=== PATIENT | male | born 1965 | race Caucasian/White ===

== ENCOUNTER 2019-07-29 13:22 | Emergency (ER) | payer OTHER ==
--- NOTE | 2019-07-29 13:49 | EKG REPORT ---
SEVERITY:- ABNORMAL ECG - ISNUS TACHYCARDIA LVH WITH SECONDARY REPOLARIZATION ABNORMALITY BORDERLINE PROLONGED QT INTERVAL PVC NONSPECIFIC ST-T CHANGES- INFERIOR LEADS : Confirmed by: Ivan Hinson MD 29-Jul-2019 13:48:32
[2019-07-29] MEDS ORDERED: ASPIRIN 81 MG TABLET, CHEWABLE PO ONE (13:50)
--- NOTE | 2019-07-29 13:53 | ER Document Report ---
ED Medical Screen (RME) - General Chief Complaint: Chest Pain Stated Complaint: CHEST PAIN Time Seen by Provider: 07/29/19 13:46 Mode of Arrival: Wheelchair Information source: Patient Notes: This 53-year-old male presents emergency department with complaints of his chest feeling tight fluttering. Patient feels very shaky nauseated said he started sweating. Reports he is on jury duty left eat lunch at [employer] when he started feeling this way. Patient respiratory rate even unlabored with irregular heartbeat. Denies history of cardiac disease denies high blood pressure diabetes. I have greeted and performed a rapid initial assessment of this patient. A comprehensive ED assessment and evaluation of the patient, analysis of test results and completion of the medical decision making process will be conducted by additional ED providers. Dictation of this chart was performed using voice recognition software; therefore, there may be some unintended grammatical errors. - Related Data Allergies/Adverse Reactions: No Known Allergies Allergy (Unverified 07/29/19 13:43) Past Medical History - Social History Frequency of alcohol use: a beer three times a week Drug Abuse: None Physical Exam - Vital signs Vitals: Temp Pulse Resp BP Pulse Ox 98.2 F 117 H 24 H 137/88 H 98 07/29/19 13:35 07/29/19 13:35 07/29/19 13:35 07/29/19 13:35 07/29/19 13:35 Course - Vital Signs Vital signs: Temp Pulse Resp BP Pulse Ox 98.2 F 117 H 24 H 137/88 H 98 07/29/19 13:35 07/29/19 13:35 07/29/19 13:35 07/29/19 13:35 07/29/19 13:35
--- NOTE | 2019-07-29 14:54 | ER Document Report ---
ED General - General Chief Complaint: Chest Pain Stated Complaint: CHEST PAIN Time Seen by Provider: 07/29/19 13:46 Primary Care Provider: AIDEN KILGORE III, MD [Primary Care Provider] - Follow up as needed (2 days for reevaluation please return the emergency department sooner if your symptoms become more frequent or any other concerns) Mode of Arrival: Wheelchair - [facility] Notes: Patient with no past medical history presents with sudden onset approximately 1 hour prior to arrival with feeling pressure and fluttering in his chest. This made him feel lightheaded but not nauseous. The pain was nonradiating. No recent cough congestion fevers or illnesses. Does not drink any energy drinks. No history of heart attack or stroke either with him or his family. - Related Data Allergies/Adverse Reactions: No Known Allergies Allergy (Unverified 07/29/19 13:43) Past Medical History - General Information source: Patient - Social History Smoking Status: Never Smoker Frequency of alcohol use: a beer three times a week Drug Abuse: None Family History: Reviewed & Not Pertinent Patient has suicidal ideation: No Patient has homicidal ideation: No Review of Systems - Review of Systems Constitutional: No symptoms reported EENT: No symptoms reported Cardiovascular: See HPI Respiratory: No symptoms reported Gastrointestinal: No symptoms reported Genitourinary: No symptoms reported Male Genitourinary: No symptoms reported Musculoskeletal: No symptoms reported Skin: No symptoms reported Hematologic/Lymphatic: No symptoms reported Neurological/Psychological: No symptoms reported Physical Exam - Vital signs Vitals: Temp Pulse Resp BP Pulse Ox 98.2 F 117 H 24 H 137/88 H 98 07/29/19 13:35 07/29/19 13:35 07/29/19 13:35 07/29/19 13:35 07/29/19 13:35 - General General appearance: Appears well, Alert - HEENT Head: Normocephalic, Atraumatic - Respiratory Respiratory status: No respiratory distress Chest status: Nontender Breath sounds: Normal - Cardiovascular Rhythm: Regular Heart sounds: Normal auscultation Murmur: No - Abdominal Inspection: Normal Distension: No distension Bowel sounds: Normal Tenderness: Nontender - Extremities General upper extremity: Normal inspection, Normal ROM General lower extremity: Normal inspection, Normal ROM Course - Re-evaluation Re-evalutation: 07/29/19 16:07 D-dimer positive proceed with CTA of chest. Patient does show mild cardiomegaly but he does perform martial arts and aerobics approximately every other day. He does not express any shortness of breath or chest pain when performing exercise. He is low risk heart score of three. His heart rate is come down to 81 in the The emergency department. He states he feels a little bit of trembling bilateral hands but otherwise he is feeling his palpitations subsided. Upon further discussion he does state that he has been under more stress than normal. Upon reviewing telemetry records there is no bouts of any arrhythmias. 07/29/19 16:53 Nursing staff is placing line placement for CTA of chest. We will also perform 4-hour troponin. If these lab tests are negative feel patient is safe for discharge with primary care follow-up and reevaluation in the next 2 to 3 days. 07/29/19 16:58 - Vital Signs Vital signs: Temp Pulse Resp BP Pulse Ox 98.3 F 117 H 21 H 144/97 H 93 07/29/19 20:01 07/29/19 13:35 07/29/19 20:01 07/29/19 20:01 07/29/19 20:01 - Laboratory Result Diagrams: 07/29/19 16:00 07/29/19 15:00 Laboratory results interpreted by me: 07/29/19 07/29/19 07/29/19 15:00 15:00 16:00 Hgb 17.9 H Hct 51.5 H Plt Count 75 L D-Dimer 0.62 H Carbon Dioxide 19 L Glucose 194 H - Diagnostic Test Radiology reviewed: Image reviewed, Reports reviewed - EKG Interpretation by Me Additional EKG results interpreted by me: Time 1330 Sinus tachycardia, normal intervals, no concerning ST depressions or elevations 07/29/19 16:55 Time 1331 Rate of 98, normal intervals, no concerning ST depressions or elevations, frequent PVCs 07/29/19 17:06 [id number] Date of 85, sinus rhythm, no ST depressions or elevations. Discharge - Discharge Clinical Impression: Palpitations Condition: Good Disposition: HOME, SELF-CARE Instructions: Palpitations (Irregular or Rapid Heartrate) ([facility]) Referrals: JAME VALERA,AIDEN Garrett MD [Primary Care Provider] - Follow up as needed (2 days for reevaluation please return the emergency department sooner if your symptoms become more frequent or any other concerns)
--- NOTE | 2019-07-29 15:37 | RADIOLOGY REPORT (SQ) ---
EXAM DESCRIPTION: CHEST SINGLE VIEW COMPLETED DATE/TIME: 07/29/2019 3:30 pm REASON FOR STUDY: fluttering, chest tight COMPARISON: None. EXAM PARAMETERS: NUMBER OF VIEWS: One view. TECHNIQUE: Single frontal radiographic view of the chest acquired. RADIATION DOSE: NA LIMITATIONS: None. FINDINGS: LUNGS AND PLEURA: No opacities, masses or pneumothorax. No pleural effusion. MEDIASTINUM AND HILAR STRUCTURES: No masses. Contour normal. HEART AND VASCULAR STRUCTURES: Cardiomegaly. BONES: No acute findings. HARDWARE: None in the chest. OTHER: No other significant finding. IMPRESSION: Cardiomegaly in low volume AP portable examination. No acute abnormality of the lungs. TECHNICAL DOCUMENTATION: JOB ID: [id number] [employer]- All Rights Reserved Reading location - IP/workstation name: [email or web address]
[2019-07-29 16:24] LABS: ABSOLUTE EOSINOPHILS # (AUTO) 0.1 10^3/uL (0.0-0.6); ABSOLUTE LYMPHOCYTES (AUTO) 1.6 10^3/uL (0.5-4.7); ABSOLUTE MONOCYTES (AUTO) 0.6 10^3/uL (0.1-1.4); ABSOLUTE NEUT (AUTO) 4.3 10^3/uL (1.7-8.2); BASOPHILS % (AUTO) 0.7 % (0-2); EOSINOPHILS % (AUTO) 2.2 % (0-6); HEMATOCRIT 51.5 % (37.9-51.0); HEMOGLOBIN 17.9 g/dL (13.5-17.0); LYMPHOCYTES % (AUTO) 23.8 % (13-45); MEAN CORPUSCULAR HEMOGLOBIN 33.3 pg (27.0-33.4); MEAN CORPUSCULAR HGB CONC 34.9 g/dL (32.0-36.0); MEAN CORPUSCULAR VOLUME 95 fl (80-97); RED CELL DISTRIBUTION WIDTH 13.1 % (11.5-14.0); SEGMENTED NEUTROPHILS % (AUTO) 64.3 % (42-78); TOTAL CELLS COUNTED % (AUTO) 100 %; WHITE BLOOD COUNT 6.7 10^3/uL (4.0-10.5)
[2019-07-29 16:30] LABS: ALBUMIN 4.3 g/dL (3.5-5.0); ALKALINE PHOSPHATASE 116 U/L (38-126); ANION GAP 12 (5-19); ASPARTATE AMINO TRANSFERASE 54 U/L (17-59); BILIRUBIN,DIRECT 0.4 mg/dL (0.0-0.4); BILIRUBIN,TOTAL 1.2 mg/dL (0.2-1.3); BLOOD UREA NITROGEN 16 mg/dL (7-20); CALCIUM 8.9 mg/dL (8.4-10.2); CARBON DIOXIDE 19 mmol/L (22-30); CHLORIDE 107 mmol/L (98-107); CREATINE KINASE 135 U/L (55-170); GLUCOSE 194 mg/dL (75-110); POTASSIUM 4.2 mmol/L (3.6-5.0); TOTAL PROTEIN 7.8 g/dL (6.3-8.2)
[2019-07-29 16:37] LABS: CREATINE KINASE MB 1.57 ng/mL (<4.55)
[2019-07-29 16:40] LABS: TROPONIN I < 0.012 ng/mL
[2019-07-29 16:47] LABS: PLATELET COUNT 75 10^3/uL (150-450)
--- NOTE | 2019-07-29 17:59 | RADIOLOGY REPORT (SQ) ---
EXAM DESCRIPTION: CTA CHEST COMPLETED DATE/TIME: 07/29/2019 5:21 pm REASON FOR STUDY: + ddimer COMPARISON: None. TECHNIQUE: CT scan of the chest performed using helical scanning technique with dynamic intravenous contrast injection. Images reviewed with lung, soft tissue and bone windows. Reconstructed coronal and sagittal MPR images reviewed. Additional 3 dimensional post-processing performed to develop Maximal Intensity Projection images ([place] P). All images stored on PACS. All CT scanners at this facility use dose modulation, iterative reconstruction, and/or weight based d osing when appropriate to reduce radiation dose to as low as reasonably achievable (ALARA). [facility]: Dose Right [facility]: CareDose [facility]: Dose Right [facility]: Teradose 4D [facility]: [facility] CONTRAST TYPE AND DOSE: contrast/concentration: Isovue 350.00 mg/ml; Total Contrast Delivered: 65.0 ml; Total Saline Delivered: 80.0 ml Contrast bolus adequate for pulmonary arteries and aorta. RENAL FUNCTION: BUN 16 creatinine 0.74 RADIATION DOSE: CT Rad equipment meets quality standard of care and radiation dose reduction techniq ues were employed. CTDIvol: 14.9 - 17.7 mGy. DLP: 660 mGy-cm. . LIMITATIONS: None. FINDINGS: LUNGS AND PLEURA: No masses, infiltrates, or pneumothorax. No pleural effusions or pleura l calcifications. AORTA AND GREAT VESSELS: No aneurysm. No dissection. HEART: No pericardial effusion. No significant coronary artery calcifications. PULMONARY ARTERIES: No emboli visualized in the main pulmonary arteries or the segmental branches. HILAR AND MEDIASTINAL STRUCTURES: Small hiatal hernia. HARDWARE: None in the chest. UPPER ABDOMEN: No significant findings. Limited exam. THYROID AND OTHER SOFT TISSUES: No masses. No adenopathy. BONES: No acute or significant finding. 3D MIPS: Confirm above findings. OTHER: No other significant finding. IMPRESSION: No pulmonary emboli. No aortic aneurysm or dissection. Small hiatal hernia. COMMENT: Quality ID # [id number]: Final reports with documentation of one or more dose reduction techniques (e.g., Automated exposure control, adjustment of the mA and/or kV according to patient size, use of iterative reconstruction technique) TECHNICAL DOCUMENTATION: JOB ID: [id number] [employer]- All Rights Reserved Reading location - IP/workstation name: [email or web address]
--- NOTE | 2019-07-29 18:48 | EKG REPORT ---
SEVERITY:- ABNORMAL ECG - SINUS RHYTHM LVH WITH SECONDARY REPOLARIZATION ABNORMALITY : Confirmed by: Ivan Hinson MD 29-Jul-2019 18:48:14
--- NOTE | 2019-07-29 18:49 | EKG REPORT ---
SEVERITY:- ABNORMAL ECG - SINUS TACHYCARDIA LEFT VENTRICULAR HYPERTROPHY NONSPECIFIC ST-T CHANGES- INFERIOR LEADS : Confirmed by: Ivan Hinson MD 29-Jul-2019 18:49:19
--- NOTE | 2019-07-29 18:49 | EKG REPORT ---
SEVERITY:- ABNORMAL ECG - SINUS TACHYCARDIA MULTIPLE VENTRICULAR PREMATURE COMPLEXES LVH WITH SECONDARY REPOLARIZATION ABNORMALITY : Confirmed by: Ivan Hinson MD 29-Jul-2019 18:48:49
--- NOTE | 2019-07-29 20:02 | ER Document Report ---
Doctor's Note Notes: 07/29/19 20:00 Patient checked out to this MD by Dr. Reeder. Patient's CT of his chest and abdomen is unremarkable for pulmonary embolism. Patient's magnesium level is 2. Repeat troponin is negative. Patient's final diagnosis is palpitations. This MD discussed findings with patient and all questions were answered. Patient is discharged home to self-care.
[2019-07-29 20:32] VITALS: BP 144/97
== END 2019-07-29 20:15 | disposition home or self-care (01) ==
LOC: ER 13:22
DX: R00.2 Palpitations (principal); R07.9 Chest pain, unspecified; R11.0 Nausea; R20.2 Paresthesia of skin
CPT/HCPCS: 36415; 71045; 71275; 80053; 82550; 82553; 83735; 84443; 84484; 85025; 85379; 93005; 93010; 99285